=== PATIENT | male | born 1935 | race Two or more races ===

== ENCOUNTER 2022-11-21 14:51 | Emergency (ER) | payer OTHER ==
[~2022-11-21] VITALS: Ht 165.1 cm; Wt 104.3 kg
[2022-11-21] MEDS ORDERED: TRADJENTA5 MG PO (15:18)
[2022-11-21] MEDS ORDERED: GLIMEPIRIDE4 MG (15:18)
[2022-11-21] MEDS ORDERED: AVAPRO300 MG PO (15:19)
[2022-11-21] MEDS ORDERED: PLAVIX75 MG (15:20)
[2022-11-21] MEDS ORDERED: LIPITOR20 MG (15:20)
[2022-11-21] MEDS ORDERED: ECOTRIN81 MG (15:21)
[2022-11-21] MEDS ORDERED: CLONAZEPAM1 MG (15:21)
== END 2022-11-21 20:33 | disposition home or self-care (01) ==
LOC: ER 14:51
DX: K62.5 Hemorrhage of anus and rectum (principal); I10 Essential (primary) hypertension; E11.9 Type 2 diabetes mellitus without complications; Z20.822 Contact with and (suspected) exposure to COVID-19; Z79.84 Long term (current) use of oral hypoglycemic drugs; K57.30 Diverticulosis of large intestine without perforation or abscess without bleeding; J90 Pleural effusion, not elsewhere classified